=== PATIENT | female | born 2000 | race Hispanic/Latino ===

== ENCOUNTER 2019-04-27 07:38 | Observation (INO) | payer MEDICAID ==
[~2019-04-27] VITALS: Ht 167.6 cm; Wt 84.8 kg
[2019-04-27 08:56] LABS: APPEARANCE,URINE Clear (CLEAR); BILIRUBIN,URINE Negative (NEGATIVE); COLOR,URINE Yellow (YELLOW); GLUCOSE, URINE (UA) Negative (NEGATIVE); KETONES,URINE Negative (NEGATIVE); LEUKOCYTE ESTERASE ,URINE Small (NEGATIVE); NITRATE,URINE Negative (NEGATIVE); OCCULT BLOOD,URINE Negative (NEGATIVE); PH,URINE 5.5 (5.0-8.0); PROTEIN,URINE Negative (NEGATIVE)
[2019-04-27 09:04] LABS: RBC,URINE 0-1 /HPF (0-1)
[2019-04-27 09:05] LABS: BACTERIA,URINE Rare /HPF (None Seen); SQUAMOUS EPITHELIAL CELL,UR Few /HPF (0-2)
== END 2019-04-27 09:35 | disposition home or self-care (01) ==
LOC: EDH 07:38 → LDH 07:39
DX: O42.92 Full-term premature rupture of membranes, unspecified as to length of time between rupture and onset of labor (principal); Z3A.39 39 weeks gestation of pregnancy
CPT/HCPCS: 81001; 82120; 99284; G0378

== ENCOUNTER 2019-04-27 19:14 | Inpatient (IN) | payer MEDICAID ==
[~2019-04-27] VITALS: Ht 167.6 cm; Wt 83.9 kg
[~2019-04-27 19:14] MED LIST: METHYLERGONOVINE MALEATE 0.2 MG/1 ML ML IM ONE
[2019-04-27] MEDS ORDERED: NALOXONE HCL 0.4 MG/1 ML ML IV PRN (20:15)
[2019-04-27] MEDS ORDERED: LACTATED RINGERS 500 ML 500 ML IV PRN (20:15)
[2019-04-27] MEDS ORDERED: EPHEDRINE SULFATE 50 MG/ML AMPULE IVP PRN (20:15)
[2019-04-27] MEDS ORDERED: ROPIVACAINE 0.2% 100ML VIAL 100 ML EP PRN (20:15)
[2019-04-27] MEDS ORDERED: BUTORPHANOL TARTRATE 2 MG/ML IVP PRN (20:15)
[2019-04-27 20:48] LABS: HEMATOCRIT 29.2 % (36-48); MEAN CORPUSCULAR HEMOGLOBIN 22.8 pg (27.0-33.0); NUCLEATED RED BLOOD CELLS 0.1 % (0.0-0.19); PLATELET COUNT (AUTO) 289 K/uL (130-400); RED BLOOD CELL COUNT(AUTO) 4.23 MIL/uL (4.00-5.50); RED CELL DISTRIBUTION WIDTH 18.2 % (11.0-15.5); WHITE BLOOD COUNT (AUTO) 9.6 K/uL (4.8-10.8)
[2019-04-27 21:12] VITALS: BP 129/87
[2019-04-27] MEDS: LACTATED RINGERS 1000ML 1,000 ML IV PRN ×2 (22:55→23:05)
[2019-04-27 22:57] LABS: INR 0.89 (0.85-1.15); PARTIAL THROMBOPLASTIN TIME 27.1 SEC (26.3-35.5); PROTHROMBIN TIME 9.4 SEC (9.6-11.6)
[2019-04-27] MEDS ORDERED: FENTANYL CITRATE PF 50 MCG/1 ML 2ML VIAL ONE (22:59)
[2019-04-28] MEDS: LACTATED RINGERS 1000ML 1,000 ML IV PRN (00:03)
[2019-04-28 00:17] LABS: APPEARANCE,URINE Clear (CLEAR); BILIRUBIN,URINE Negative (NEGATIVE); COLOR,URINE Yellow (YELLOW); GLUCOSE, URINE (UA) Negative (NEGATIVE); KETONES,URINE 15 mg/dL (NEGATIVE); LEUKOCYTE ESTERASE ,URINE Trace (NEGATIVE); NITRATE,URINE Negative (NEGATIVE); OCCULT BLOOD,URINE Small (NEGATIVE); PROTEIN,URINE Negative (NEGATIVE)
[2019-04-28 00:31] LABS: BACTERIA,URINE None Seen /HPF (None Seen); RBC,URINE 0-1 /HPF (0-1); SQUAMOUS EPITHELIAL CELL,UR Rare /HPF (0-2); WBC,URINE 0-1 /HPF (0-1)
[2019-04-28] MEDS ORDERED: OXYTOCIN-LR 20 UNITS/1000 ML 1,000 ML IV ONE (01:15)
[2019-04-28] MEDS ORDERED: LIDOCAINE HCL 1% 20 ML VIAL ONE (01:16)
[2019-04-28] MEDS ORDERED: MISOPROSTOL 200 MCG TABLET ONE (01:18)
[2019-04-28] MEDS ORDERED: OXYTOCIN-LR 20 UNITS/1000 ML 1,000 ML IV SCH (02:15)
[2019-04-28] MEDS ORDERED: METHYLERGONOVINE MALEATE 0.2 MG/1 ML ML IM ONE (02:21)
[2019-04-28] MEDS ORDERED: MISOPROSTOL 200 MCG TABLET PR SCH (02:26)
[2019-04-28] MEDS ORDERED: MAGNESIUM 4GM PREMIX 100ML 100 ML IV ONE (02:40)
[2019-04-28] MEDS ORDERED: MAGNESIUM SULFATE 1,000 ML IV ONE (02:41)
[2019-04-28] MEDS ORDERED: LACTATED RINGERS 1000ML 1,000 ML IV SCH (02:46)
[2019-04-28] MEDS ORDERED: MAGNESIUM 4GM PREMIX 100ML 100 ML IV PRN ×2 (03:00)
[2019-04-28] MEDS ORDERED: CALCIUM GLUCONATE 1 GM/10 ML VIAL IV PRN (03:00)
[2019-04-28] MEDS ORDERED: LANOLIN 30GM OINTMENT TP PRN (03:00)
[2019-04-28] MEDS ORDERED: BENZOCAINE/LANOLIN/ALOE VERA 60 ML AEROSOL TP PRN (03:00)
[2019-04-28] MEDS ORDERED: OXYTOCIN 10 USP UNITS/ML IV PRN (03:00)
[2019-04-28] MEDS ORDERED: ACETAMINOPHEN-CODEINE 300/30MG TAB PO PRN (03:00)
[2019-04-28] MEDS ORDERED: ACETAMINOPHEN 325 MG TAB PO PRN (03:00)
[2019-04-28] MEDS ORDERED: WITCH HAZEL 1 PAD TP PRN (03:00)
[2019-04-28] MEDS ORDERED: DIPH,PERTUSS(ACELL),TET VAC/PF 0.5 ML VIAL IM PRN (03:00)
[2019-04-28] MEDS ORDERED: MEASLES/MUMPS/RUBELLA VACCINE, LIVE 0.5 ML/VIAL SQ PRN (03:00)
[2019-04-28] MEDS ORDERED: IBUPROFEN 600 MG TABLET PO PRN (03:00)
[2019-04-28] MEDS ORDERED: OXYTOCIN 10 USP UNITS/ML 20 UNIT in LACTATED RINGERS 1000ML 1,000 ML IV SCH (07:00)
[2019-04-28] MEDS: IBUPROFEN 800 MG TAB PO SCH ×2 (07:31→15:26)
[2019-04-28 08:44] LABS: HEMATOCRIT 26.6 % (36-48); MEAN CORPUSCULAR HEMOGLOBIN 22.2 pg (27.0-33.0); MEAN CORPUSCULAR HGB CONC 32.2 g/dL (32.0-36.0); MEAN CORPUSCULAR VOLUME 68.9 fL (80-100); PLATELET COUNT (AUTO) 296 K/uL (130-400); RED BLOOD CELL COUNT(AUTO) 3.86 MIL/uL (4.00-5.50); RED CELL DISTRIBUTION WIDTH 17.9 % (11.0-15.5); WHITE BLOOD COUNT (AUTO) 14.6 K/uL (4.8-10.8)
[2019-04-28 09:28] LABS: BASOPHILS % (AUTO) 0.6 % (0.0-5.0); LYMPHOCYTES % (AUTO) 11.8 % (21.0-51.0); MONOCYTES % (AUTO) 5.5 % (3.0-13.0); NEUTROPHILS % (AUTO) 82.1 % (40.0-77.0)
[2019-04-28] MEDS: DOCUSATE SODIUM 100 MG CAP PO SCH ×2 (11:40→21:32)
[2019-04-28 15:10] VITALS: BP 131/81
[2019-04-28 20:20] VITALS: BP 114/69
[2019-04-28 23:55] VITALS: BP 101/59
[2019-04-29] MEDS: IBUPROFEN 800 MG TAB PO SCH ×2 (00:29→08:07)
[2019-04-29 03:35] VITALS: BP 87/49
[2019-04-29 07:15] LABS: HEPATITIS Bs ANTIGEN SCREEN P Negative (Negative)
[2019-04-29 07:40] VITALS: BP 109/60
[2019-04-29] MEDS ORDERED: FERR-82 PO ×2 (08:53)
[2019-04-29] MEDS ORDERED: PREN-154 PO ×2 (08:53)
[2019-04-29] MEDS: DOCUSATE SODIUM 100 MG CAP PO SCH (08:59)
[2019-04-29] MEDS ORDERED: FLU VACC QS2019-20 36MOS UP/PF 60 MCG/0.5 ML ML IM ONE (09:00)
[2019-04-29 11:05] VITALS: BP 124/74
--- NOTE | 2019-04-29 12:20 | NUR ---
INSTRUCTIONS DISCHARGE INSTRUCTIONS READ AND EXPLAINED TO PATIENT. PRESCRIPTION FOR MOTRIN 800MG HANDED TO PATIENT. QUESTIONS INVITED AND ANSWERED. PATIENT VERBALIZED UNDERSTANDING.
--- NOTE | 2019-04-29 12:40 | NUR ---
DISCHARGE PATIENT LEFT UNIT VIA WHEELCHAIR WITH BABY IN ARMS ACCOMPANIED BY FAMILY. PERSONAL VEHICLE USED FOR TRANSPORTATION. BABY SECURE IN CARSEAT.
== END 2019-04-29 12:40 | disposition home or self-care (01) | DRG 560 ==
LOC: EDH 19:14 → LDH 19:15 → OBSVTOIN 19:15 → WSH 04-28 15:10
PROC: 10E0XZZ Delivery of Products of Conception, External Approach (ICD-10-PCS; principal; 2019-04-28)
PROC: 0KQM0ZZ Repair Perineum Muscle, Open Approach (ICD-10-PCS; 2019-04-28)
PROC: 3E0R3BZ Introduction of Anesthetic Agent into Spinal Canal, Percutaneous Approach (ICD-10-PCS; 2019-04-28)
PROC: 00HU33Z Insertion of Infusion Device into Spinal Canal, Percutaneous Approach (ICD-10-PCS; 2019-04-28)
PROC: 3E0234Z Introduction of Serum, Toxoid and Vaccine into Muscle, Percutaneous Approach (ICD-10-PCS; 2019-04-28)
PROC: 3E0234Z Introduction of Serum, Toxoid and Vaccine into Muscle, Percutaneous Approach (ICD-10-PCS; 2019-04-28)
PROC: 3E0134Z Introduction of Serum, Toxoid and Vaccine into Subcutaneous Tissue, Percutaneous Approach (ICD-10-PCS; 2019-04-28)
PROC: 3E02340 Introduction of Influenza Vaccine into Muscle, Percutaneous Approach (ICD-10-PCS; 2019-04-28)
DX: O69.81X0 Labor and delivery complicated by cord around neck, without compression, not applicable or unspecified (principal); Z37.0 Single live birth; D64.9 Anemia, unspecified; O14.14 Severe pre-eclampsia complicating childbirth; O45.90 Premature separation of placenta, unspecified, unspecified trimester; O26.893 Other specified pregnancy related conditions, third trimester; O99.02 Anemia complicating childbirth; O62.2 Other uterine inertia; O70.1 Second degree perineal laceration during delivery; Z3A.39 39 weeks gestation of pregnancy; Z67.31 Type AB blood, Rh negative; Z23 Encounter for immunization
CPT/HCPCS: 36415; 81001; 82120; 83033; 85025; 85027; 85384; 85610; 85730; 86592; 86850; 86900; 86901; 87340; 90715; A4314; A4351; G0008; G0378; J2210; J2590; J2791; J2795; J3010; J3430; J3475; J7120